=== PATIENT | male | born 1935 | race African-American/Black ===

== ENCOUNTER 2017-10-27 07:13 | Day surgery (SDC) | payer MEDICARE, OTHER ==
[~2017-10-27] VITALS: Ht 182.9 cm; Wt 80.9 kg
[~2017-10-27 07:13] MED LIST: ALIS150T PO; BISO1TAB10 PO; DICLOFENAC SODIUM 0.1% 2.5 ML OPHTHALMIC SOLUTION OS ONE; FLUT16H NASAL; METF500T4 PO; MOXIFLOXACIN HCL 0.5% 3 ML OPHTHALMIC SOLUTION OS ONE; MULT-1082 PO; PRAV20TA4 PO; RINGERS SOLUTION,LACTATED 500 ML IV ONE; VALS80TA2 PO; [UNRECOGNIZED DRUG - CODE] SD
[2017-10-27] MEDS ORDERED: MIDAZOLAM HCL 2 MG/2 ML VIAL IVP ONE (07:14)
[2017-10-27] MEDS ORDERED: FentaNYL CITRATE-PF 100 MCG/2 ML VIAL IVP ONE (07:14)
[2017-10-27] MEDS ORDERED: MOXIFLOXACIN HCL 0.5% 3 ML OPHTHALMIC SOLUTION ONE (07:21)
[2017-10-27] MEDS ORDERED: DICLOFENAC SODIUM 0.1% 2.5 ML OPHTHALMIC SOLUTION ONE (07:21)
[2017-10-27] MEDS ORDERED: RINGERS SOLUTION,LACTATED 500 ML IV ONE (07:21)
[2017-10-27] MEDS ORDERED: PHENYLEPHRINE HCL 2.5% 2 ML OPHTHALMIC SOLUTION ONE (07:21)
[2017-10-27] MEDS ORDERED: TROPICAMIDE 1% 2 ML OPHTHALMIC SOLUTION ONE (07:21)
[2017-10-27] MEDS: TROPICAMIDE 1% 2 ML OPHTHALMIC SOLUTION OS SCH ×2 (08:13→08:18)
[2017-10-27] MEDS: PHENYLEPHRINE HCL 2.5% 2 ML OPHTHALMIC SOLUTION OS SCH ×2 (08:14→08:18)
[2017-10-27 08:17] LABS: GLUCOMETER DEV NAME(LOC) SDS 5; GLUCOSE,POINT OF CARE 109 MG/DL (70-110)
== END 2017-10-27 10:20 | disposition home or self-care (01) ==
LOC: SURGERY 07:13
PROVIDERS: ATTEND Specialist
DX: E11.36 Type 2 diabetes mellitus with diabetic cataract (principal); H25.012 Cortical age-related cataract, left eye; I10 Essential (primary) hypertension; K21.9 Gastro-esophageal reflux disease without esophagitis; E78.00 Pure hypercholesterolemia, unspecified; M19.90 Unspecified osteoarthritis, unspecified site; J45.909 Unspecified asthma, uncomplicated; Z85.46 Personal history of malignant neoplasm of prostate; Z72.89 Other problems related to lifestyle; Z79.84 Long term (current) use of oral hypoglycemic drugs; Z79.899 Other long term (current) drug therapy
CPT/HCPCS: 66984; 82962; 93005 ×2; C1780; J2250; J3010; J7120